=== PATIENT | female | born 1960 | race Caucasian/White ===

== ENCOUNTER → 2017-01-14 | Outpatient (CLI) | payer BC ==
[~2017-01-14] MED LIST: ADVAIR 2501 DISK W/D; ALBUTEROL17 GM; ALLEGRA; AUGMENTIN PO; BACTRIM DS TABL1 TAB; BENICAR; CELEBREX; DEPO-PROVER150 MG/ML; FLONASE16 GM; KEFLEX PO; LEVAQUIN PO; NEXIUM; NORCO 5/325 TAB1 TAB PO; PHENERGAN PO; PREDNISONE PO; SERZONE; SINGULAIR; THEOPHYLLIN; [UNRECOGNIZED DRUG - OTHER]
--- NOTE | ~2017-01-14 | CR63 ---
[facility] A Service of [facility] RADIOLOGY TEXT RESULTS PATIENT: SHRUTHI RUBY STANISLAV LOCATION: [facility] : 62 UNIT #: [id number] AGE: [address]: Shawn Bonilla MD SEX: F ORDER DR: [id number] [facility] [address] [place], [place] [address] [id number] O MR#: [id number] Acc #: [id number] NAME: SHRUTHI RUBY : 1960 SEX: F STUDY DATE/TIME: 01/14/2017 11:58 UNIT: [facility] ROOM: STUDY DESCRIPTION: CR Chest 2 View Attending Physician: Shawn Bonilla M.D. Referring Physician: Shawn Bonilla M.D. Ordering Physician: Shawn Bonilla M.D. Primary Care Physician: Andrew Fajardo Aprn MEDICAL IMAGING REPORT This report is preliminary unless electronic signature is present EXAM Chest PA and lateral 01/14/2017. HISTORY Osteoarthritis, right knee, preop right total knee replacement. Benign essential hypertension. COPD and chest congestion. FINDINGS There is mild cardiac enlargement. The lungs are clear. There are no pleural effusions. IMPRESSION Mild cardiomegaly. No active pulmonary disease. Dictated by... Arcadio Pemberton M.D. THIS IS AN ELECTRONICALLY VERIFIED REPORT Arcadio Pemberton M.D. at 01/14/2017 5:41 PM EZRA/felix TD: 01/14/2017 17:20 JOB #: [id number] MEDICAL IMAGING REPORT Page 1 of 1 COPY
--- NOTE | ~2017-01-14 | EKG ---
PATIENT: SHRUTHI RUBY UNIT #: [id number] Ventricular Rate: 66 BPM Atrial Rate: 66 BPM P-R Interval: 150 ms QRS Duration: 98 ms Q-T Interval: 428 ms QTC Calculation(Bezet): 448 ms P [place]: 28 degrees Calculated R [place]: 11 degrees Calculated T [place]: 25 degrees Diagnosis Line: Normal sinus rhythm Diagnosis Line: Low voltage QRS Diagnosis Line: Borderline ECG Diagnosis Line: No previous ECGs available Diagnosis Line: Confirmed by BASIA LE MD ([id number]) on Diagnosis Line: 01/14/2017 2:47:49 PM INTERPRETING MD: MIMI LEWIS
[2017-01-14 11:39] LABS: HEMATOCRIT 37.4 % (35.0-45.0); HEMOGLOBIN 12.3 gm/dL (12.0-16.0); MEAN CELL VOLUME 89.9 FL (83-96); MEAN CORPUSCULAR HEMOGLOBIN 29.6 PG (28-34); MEAN CORPUSCULAR HGB CONC 32.9 g/dL (30-36); MEAN PLATELET VOLUME 6.6 FL (6.5-11.5); RED BLOOD COUNT 4.16 X10e (3.90-5.30); RED CELL DISTRIBUTION WIDTH 14.9 % (11.0-15.5); WHITE BLOOD COUNT 5.6 X10e3 (4.0-10.5)
[2017-01-14 11:41] LABS: URINE APPEARANCE CLEAR; URINE BILIRUBIN NEG (NEG); URINE BLOOD NEG (NEG); URINE COLOR YELLOW; URINE GLUCOSE NEG (NEG); URINE KETONE NEG (NEG); URINE LEUKOCYTE ESTERASE 2+ (NEG); URINE NITRATE NEG (NEG); URINE PH 5.5 (5-8); URINE PROTEIN NEG (NEG); URINE SPECIFIC GRAVITY 1.016 (1.003-1.035)
[2017-01-14 11:43] LABS: URBCS1 AUWI 0-2 /[HPF] (0-2); URINE BACTERIA AUWI 1+ (NEGATIVE); URINE SQUAMOUS EPITHELIAL CELL NONE SEEN /[HPF]; UWBCS1 AUWI 50-100 (0-5)
[2017-01-14 11:45] LABS: URINE SOURCE CLEAN CATCH
[2017-01-14 11:51] LABS: PROTHROMBIN TIME (PATIENT) 10.8 SECONDS (10.0-11.7)
[2017-01-14 12:16] LABS: BUN/CREATININE RATIO 11.42; CALCIUM SERUM 8.9 mg/dL (8.4-10.2); CREATININE SERUM 0.7 mg/dL (0.6-1.4); GLOM FILT RATE Estimated 96.9 mL/min (>60); POTASSIUM 4.2 mmol/L (3.5-5.1)
== END | disposition home or self-care (01) ==
LOC: CLAB 11:15
PROVIDERS: Orthopaedic Surgery
DX: Z01.818 Encounter for other preprocedural examination (principal); M17.12 Unilateral primary osteoarthritis, left knee; K21.9 Gastro-esophageal reflux disease without esophagitis; J44.9 Chronic obstructive pulmonary disease, unspecified; J18.9 Pneumonia, unspecified organism; I10 Essential (primary) hypertension; I51.7 Cardiomegaly
CPT/HCPCS: 36415; 71020; 80048; 81003; 85027; 85610; 93005